=== PATIENT | male | born 1970 | race Caucasian/White ===

== ENCOUNTER 2017-09-22 16:18 | Emergency (ER) | payer OTHER ==
[~2017-09-22 16:18] MED LIST: HYDROmorphONE/DILAUDID 2 MG TAB PO SCH; ONDANSETRON DISINTEGRATING 4 MG TAB PO SCH
--- NOTE | 2017-09-22 16:24 | EDPHY ---
H & P Stated Complaint: ruq abd pain/nausea/vomited x1 radiates into back Time Seen by Provider: 09/22/17 16:24 HPI/ROS: HPI: This is a 47-year-old male who presents with Chief Complaint: ruq abd pain/nausea/vomited x1 radiates into back Location: Right upper quadrant Quality: Pain Duration: 1-2 days Signs and Symptoms: no fever, + nausea, + vomiting, no hematemesis, no blood in stool, no abdominal bloating, no diarrhea, no back pain, no urinary symptoms, no testicular/groin pain, no indigestion, no chest pain, no shortness of breath Timing: Sudden, waxes and wane Severity: Moderate to severe Context: Patient reports that he has a history of GERD in for the last 1-2 days he has been experiencing right upper quadrant radiating to his back constant pain that worsened after eating a salad for lunch within 1 hour. He became extremely nauseous and vomited up his salad. Patient reports that he tries to avoid fatty or fried foods or large meals. He denies any fever/chest pain/shortness of breath/diarrhea. Patient reports that he has daily bowel movements. Patient reports that he does drink alcohol but not for the last several days and not excessively. works here at [employer] [facility] [employer]. Modifying Factors: None Comment: ROS: see HPI Constitutional: No fever, no chills, no weight loss Eyes: No blurred vision Respiratory: No shortness of breath, no cough Cardiovascular: No chest pain, no palpitations Gastrointestinal: + nausea, + vomiting, no diarrhea, no hematemesis, no blood in stool Genitourinary: No dysuria, no blood in urine Extremities: No myalgias, no edema Neurologic: No weakness, no numbness Skin: No rashes, no petechiae Hematologic: No bruising, no bleeding MEDICAL/SURGICAL/SOCIAL HISTORY: Medical history: GERD. Surgical history: Denies Social history: CONSTITUTIONAL: Obese adult white male, who appears uncomfortable, awake and alert, no obvious distress HEENT: Atraumatic and normocephalic, PERRL, EOMI. Tympanic membranes clear. Oropharynx clear, no exudate and moist pink mucosa. Airway patent. No lymphadenopathy. No meningismus. Cardiovascular: Normal S1/S2, regular rate, regular rhythm, without murmur rub or gallop. PULMONARY/CHEST: Symmetrical and nontender. Clear to auscultation bilaterally. Good air movement. No accessory muscle usage. ABDOMEN: Soft, nondistended, right upper quadrant tenderness, epigastric tenderness, no rebound, + guarding, no peritoneal signs, no masses or organomegaly. No CVAT. Protuberant abdomen. Bowel sounds hypoactive throughout. EXTREMITIES: 2/2 pulses, strength 5/5, no deformities, no clubbing, no cyanosis or edema. NEUROLOGICAL: no focal neuro deficits. GCS 15. SKIN: Warm and dry, no erythema. no rash. Good capillary refill. Source: Patient Exam Limitations: No limitations - Personal History Current Tetanus/Diphtheria Vaccine: Yes Current Tetanus Diphtheria and Acellular Pertussis (TDAP): Yes - Medical/Surgical History Hx Asthma: No Hx Chronic Respiratory Disease: No Hx Diabetes: No Hx Cardiac Disease: No Hx Renal Disease: No Hx Cirrhosis: No Hx Alcoholism: No Hx HIV/AIDS: No Hx Splenectomy or Spleen Trauma: No Other PMH: gerd - Social History Smoking Status: Former smoker Constitutional: Initial Vital Signs Temperature (C) 36.7 C 09/22/17 16:20 Heart Rate 83 09/22/17 16:20 Respiratory Rate 19 09/22/17 16:20 Blood Pressure 130/85 H 09/22/17 16:20 O2 Sat (%) 93 09/22/17 16:20 O2 Delivery Mode Room Air O2 (L/minute) 2 Allergies/Adverse Reactions: No Known Allergies Allergy (Verified 09/22/17 16:18) Home Medications: Medication Instructions Recorded Atorvastatin Calcium 11/26/16 PRILOSEC 11/26/16 HYDROmorphone HCL [Dilaudid 2 mg 2 mg PO Q6 PRN #12 tab 09/22/17 (*)] Ondansetron Odt [Zofran Odt 4 mg 4 mg PO Q4 PRN #12 tab 09/22/17 (*)] Medical Decision Making - Diagnostics Imaging Results: Imaging Impressions Abdomen Ultrasound 09/22/17 16:32 Impression: 1. Cholelithiasis with multiple gallstones lodged in the gallbladder neck region. 2. No definite gallbladder wall thickening or pericholecystic fluid. 3. No biliary ductal dilation. 4. Hepatomegaly and hepatic steatosis. Findings and recommendations discussed with Emergency Department physician, Dr. Cely Gtz at 1710 hour, 09/22/2017. Final report concurs with initial preliminary interpretation. ED Course/Re-evaluation: Labs, IV fluids, IV medications, right upper quadrant ultrasound ordered Will evaluate for gallbladder disease Called by radiologist who reports that there are multiple stones within the gallbladder and neck but no signs of cholangitis/cholecystitis/ choledocholithiasis. With normal common bile duct measurement. Labs reviewed and show mild leukocytosis but no elevated LFTs or signs of acute kidney injury/electrolyte imbalance/dehydration 1740: Reassessed; patient states that his pain is not resolved; IV Dilaudid and IV promethazine given 1930: Reassessed patient who states that pain is completely resolved. Drinking edgar shilpa without any pain or difficulty. Patient reports that Percocet makes him nauseous. Requesting Dilaudid as his pain medication. Differential Diagnosis: Abdominal pain including but not limited to appendicitis, cholecystitis, gastritis and urinary tract infection. - Data Points Laboratory Results: Laboratory Results 09/22/17 16:45 09/22/17 16:45 09/22/17 09/22/17 16:45 16:45 WBC 11.45 10^3/uL H 10^3/uL (3.80-9.50) RBC 5.74 10^6/uL 10^6/uL (4.40-6.38) Hgb 14.5 g/dL g/dL (13.7-17.5) Hct 44.4 % % (40.0-51.0) MCV 77.4 fL L fL (81.5-99.8) MCH 25.3 pg L pg (27.9-34.1) MCHC 32.7 g/dL g/dL (32.4-36.7) RDW 15.3 % H % (11.5-15.2) Plt Count 281 10^3/uL 10^3/uL (150-400) MPV 11.5 fL fL (8.7-11.7) Neut % (Auto) 65.0 % % (39.3-74.2) Lymph % (Auto) 21.7 % % (15.0-45.0) [place] % (Auto) 8.7 % % (4.5-13.0) Eos % (Auto) 3.1 % % (0.6-7.6) Baso % (Auto) 0.9 % % (0.3-1.7) Nucleat RBC Rel Count 0.0 % % (0.0-0.2) Absolute Neuts (auto) 7.45 10^3/uL H 10^3/uL (1.70-6.50) Absolute Lymphs (auto) 2.48 10^3/uL 10^3/uL (1.00-3.00) Absolute Monos (auto) 1.00 10^3/uL H 10^3/uL (0.30-0.80) Absolute Eos (auto) 0.35 10^3/uL 10^3/uL (0.03-0.40) Absolute Basos (auto) 0.10 10^3/uL 10^3/uL (0.02-0.10) Absolute Nucleated RBC 0.00 10^3/uL 10^3/uL (0-0.01) Immature Gran % 0.6 % % (0.0-1.1) Immature Gran # 0.07 10^3/uL 10^3/uL (0.00-0.10) Sodium 142 mEq/L mEq/L (134-144) Potassium 4.6 mEq/L mEq/L (3.5-5.2) Chloride 104 mEq/L mEq/L (97-110) Carbon Dioxide 26 mEq/l mEq/l (22-31) Anion Gap 12 mEq/L mEq/L (8-16) BUN 17 mg/dL mg/dL (7-23) Creatinine 0.9 mg/dL mg/dL (0.7-1.3) Estimated GFR > 60 Glucose 105 mg/dL H mg/dL (70-100) Calcium 9.3 mg/dL mg/dL (8.5-10.4) Total Bilirubin 0.7 mg/dL mg/dL (0.1-1.4) Conjugated Bilirubin 0.3 mg/dL mg/dL (0.0-0.5) Unconjugated Bilirubin 0.4 mg/dL mg/dL (0.0-1.1) AST 31 IU/L IU/L (17-59) ALT 49 IU/L IU/L (21-72) Alkaline Phosphatase 108 IU/L IU/L (38-126) Total Protein 7.3 g/dL g/dL (6.3-8.2) Albumin 4.0 g/dL g/dL (3.5-5.0) Lipase 183 IU/L IU/L (23-300) Medications Given: Hydromorphone HCl (Dilaudid) 1 mg IVP Q2HRS PRN PRN Reason: Pain, Severe Unable to Take PO Last Admin: 09/22/17 17:52 Dose: 1 mg Discontinued Medications Sodium Chloride (Ns) 1,000 mls @ 0 mls/hr IV EDNOW ONE; Wide Open PRN Reason: Protocol Stop: 09/22/17 16:33 Last Admin: 09/22/17 16:40 Dose: 1,000 mls Morphine Sulfate (Morphine) 6 mg IVP EDNOW ONE Stop: 09/22/17 16:33 Last Admin: 09/22/17 16:40 Dose: 6 mg Ondansetron HCl (Zofran) 4 mg IVP EDNOW ONE Stop: 09/22/17 16:33 Last Admin: 09/22/17 16:40 Dose: 4 mg Promethazine HCl (Phenergan) 25 mg IVP EDNOW ONE Stop: 09/22/17 17:43 Last Admin: 09/22/17 17:50 Dose: 25 mg Departure - Departure Disposition: Home, Routine, Self-Care Clinical Impression: Biliary colic Cholelithiasis Qualifiers: Cholelithiasis location: gallbladder Cholecystitis presence: without cholecystitis Biliary obstruction: without biliary obstruction Qualified Code(s) : K80.20 - Calculus of gallbladder without cholecystitis without obstruction Condition: Good Instructions: Biliary Colic (ED), Gallstones (ED), Low Fat Diet (ED) Additional Instructions: Please advance diet slowly; start with clear liquids, then bland and finally low -fat diet and eat small meals. Take pain medications and antiemetics as needed. Please follow-up with General surgery in 3-5 days for re-evaluation and to determine if candidate for outpatient laparoscopic cholecystectomy. Referrals: Atilio Santiago MD [Medical Doctor] - 5-7 days, call for appt. Prescriptions: HYDROmorphone HCL [Dilaudid 2 mg (*)] 2 mg PO Q6 PRN #12 tab PRN Reason: Pain, Severe Ondansetron Odt [Zofran Odt 4 mg (*)] 4 mg PO Q4 PRN #12 tab PRN Reason: Nausea/Vomiting, Use 1st
[2017-09-22] MEDS ORDERED: ONDANSETRON 4 MG/2 ML VIAL IVP ONE (16:32)
[2017-09-22] MEDS ORDERED: NS 1,000 ML IV ONE (16:32)
[2017-09-22 16:50] LABS: PLATELET COUNT 281 10^3/uL (150-400)
[2017-09-22] MEDS ORDERED: PROMETHAZINE HCL 25 MG/ML INJ IVP ONE (17:42)
[2017-09-22] MEDS ORDERED: HYDROmorphONE/DILAUDID 1 MG/ML INJ IVP PRN (17:42)
[2017-09-22 18:04] VITALS: RESP 18
--- NOTE | 2017-09-22 19:41 | CPEKG ---
Heart Rate: 88 RR Interval: 682 P-R Interval: 236 QRSD Interval: 100 QT Interval: 364 QTC Interval: 441 P [place]: 31 QRS [place]: 24 T Wave [place]: 10 EKG Severity - ABNORMAL ECG - EKG Impression: SINUS RHYTHM EKG Impression: FIRST DEGREE AV BLOCK Electronically Signed By: Ronda Rendon 22-Sep-2017 20:52:46
--- NOTE | 2017-09-22 19:41 | CPEKG ---
Heart Rate: 88 RR Interval: 682 P-R Interval: 236 QRSD Interval: 100 QT Interval: 364 QTC Interval: 441 P [place]: 31 QRS [place]: 24 T Wave [place]: 10 EKG Severity - ABNORMAL ECG - EKG Impression: SINUS RHYTHM EKG Impression: FIRST DEGREE AV BLOCK Electronically Signed By: Ronda Rendon 22-Sep-2017 20:52:46
[2017-09-22 19:54] VITALS: BP 151/105; PULSE 95; TEMP 97.9; O2SAT 94
== END 2017-09-22 19:53 | disposition home or self-care (01) ==
DX: K80.70 Calculus of gallbladder and bile duct without cholecystitis without obstruction (principal); E86.9 Volume depletion, unspecified; Z87.891 Personal history of nicotine dependence
CPT/HCPCS: 96374; J1170; J2405; J2550

== ENCOUNTER 2017-09-23 09:32 | Observation (INO) | payer OTHER ==
[2017-09-23] MEDS ORDERED: NS 1,000 ML IV ONE (10:40)
[2017-09-23] MEDS ORDERED: HYDROmorphONE/DILAUDID 1 MG/ML INJ IVP ONE ×2 (10:40→12:03)
[2017-09-23] MEDS ORDERED: ONDANSETRON 4 MG/2 ML VIAL IVP ONE (10:40)
[2017-09-23] MEDS ORDERED: DICYCLOMINE 10 MG CAP PO ONE (10:46)
[2017-09-23] MEDS ORDERED: cefOXitin SODIUM 2 GM in D5W 100 ML IV ONE (10:47)
--- NOTE | 2017-09-23 10:56 | EDPHY ---
H & P Time Seen by Provider: 09/23/17 10:27 HPI/ROS: CHIEF COMPLAINT: Abdominal pain, vomiting HISTORY OF PRESENT ILLNESS: 47-year-old male presents to the emergency department with ongoing right upper quadrant abdominal pain and vomiting. The patient was seen in the emergency department late last evening and was diagnosed with cholelithiasis. He was discharged home with oral Dilaudid. He states when he got home he was feeling a bit better but then ate some chicken noodle soup and has essentially been and abdominal pain and vomiting since that time. He complains of severe pain in his epigastric and right upper quadrant. He has vomited "all night long ". He had a normal bowel movement earlier this morning. No blood in his stool. No fevers or chills. No reported trauma. No chest pain or difficulty breathing. No back pain. No headache. REVIEW OF SYSTEMS: Constitutional: No fever, no chills. Eyes: No double or blurry vision. ENT: No sore throat. Respiratory: No cough, no shortness of breath. Cardiac: No chest pain. Gastrointestinal: Abdominal pain and vomiting as above. No diarrhea. Genitourinary: No dysuria. Musculoskeletal: No neck or back pain. Skin: No rashes. Neurological: No headache. Past Medical/Surgical History: GERD, dyslipidemia, cholelithiasis Social History: Smoking Status: Former smoker Physical Exam: General Appearance: Alert, moderate distress. 171/105, afebrile. Eyes: Pupils equal and round. Extraocular motions are all intact. ENT: Mouth: Mucous membranes dry. Respiratory: No wheezing, rhonchi, or rales, lungs are clear to auscultation. Cardiovascular: Regular rate and rhythm. Gastrointestinal: Abdomen is obese and soft. He has tenderness with palpation in the right upper quadrant and in his epigastric area. There is no rebound, guarding or masses noted. Neurological: Alert and oriented x 3, cranial nerves II through XII grossly intact Skin: Warm and dry, no rashes. Musculoskeletal: Nontender to palpate along the cervical, thoracic or lumbar spine. Neck is supple. Extremities: Full range of motion and no peripheral edema. Psychiatric: Patient is oriented X 3, there is no agitation. Constitutional: Initial Vital Signs Temperature (C) 36.5 C 09/23/17 09:40 Heart Rate 72 09/23/17 09:40 Respiratory Rate 18 11/07/17 09:40 Blood Pressure 171/105 H 09/23/17 09:40 O2 Sat (%) 98 09/23/17 09:40 O2 Delivery Mode Room Air Allergies/Adverse Reactions: No Known Allergies Allergy (Verified 09/23/17 09:40) Home Medications: Medication Instructions Recorded Atorvastatin Calcium [Lipitor 20 20 mg PO DAILY 11/26/16 mg (*)] Omeprazole [Prilosec 20 mg] 40 mg PO DAILY 11/26/16 HYDROmorphone HCL [Dilaudid 2 mg 2 mg PO Q6 PRN #12 tab 09/22/17 (*)] Ondansetron Odt [Zofran Odt 4 mg 4 mg PO Q4 PRN #12 tab 09/22/17 (*)] Medical Decision Making ED Course/Re-evaluation: The patient's ultrasound from last evening was reviewed the patient has multiple gallstones with stone stuck in the neck of the gallbladder. The patient was kept NPO. He had an IV established and was given IV Dilaudid and IV Zofran as well as IV normal saline. Elevated transaminases today compared to normal transaminases yesterday. I spoke with the on-call surgeon, Dr. Anderson, who came to evaluate the patient. Patient was kept NPO. He asked that the patient received 2 g of cefoxitin, 20 mg of Bentyl p. o. and had the patient lie on his right side. Patient scheduled go to the operating room at 3:30 a.m. this afternoon. Patient was kept NPO and was given IV Dilaudid for pain control. Differential Diagnosis: Including but not limited to cholecystitis, cholelithiasis, choledocholithiasis , pancreatitis, GERD, peptic ulcer disease - Data Points Laboratory Results: Laboratory Results 09/23/17 10:55 09/23/17 10:55 09/23/17 09/23/17 10:55 10:55 WBC 13.67 10^3/uL H 10^3/uL (3.80-9.50) RBC 6.34 10^6/uL 10^6/uL (4.40-6.38) Hgb 16.1 g/dL g/dL (13.7-17.5) Hct 48.0 % % (40.0-51.0) MCV 75.7 fL L fL (81.5-99.8) MCH 25.4 pg L pg (27.9-34.1) MCHC 33.5 g/dL g/dL (32.4-36.7) RDW 15.7 % H % (11.5-15.2) Plt Count 302 10^3/uL 10^3/uL (150-400) MPV 11.0 fL fL (8.7-11.7) Neut % (Auto) 88.2 % H % (39.3-74.2) Lymph % (Auto) 6.4 % L % (15.0-45.0) [place] % (Auto) 4.2 % L % (4.5-13.0) Eos % (Auto) 0.1 % L % (0.6-7.6) Baso % (Auto) 0.3 % % (0.3-1.7) Nucleat RBC Rel Count 0.0 % % (0.0-0.2) Absolute Neuts (auto) 12.07 10^3/uL H 10^3/uL (1.70-6.50) Absolute Lymphs (auto) 0.87 10^3/uL L 10^3/uL (1.00-3.00) Absolute Monos (auto) 0.57 10^3/uL 10^3/uL (0.30-0.80) Absolute Eos (auto) 0.01 10^3/uL L 10^3/uL (0.03-0.40) Absolute Basos (auto) 0.04 10^3/uL 10^3/uL (0.02-0.10) Absolute Nucleated RBC 0.00 10^3/uL 10^3/uL (0-0.01) Immature Gran % 0.8 % % (0.0-1.1) Immature Gran # 0.11 10^3/uL H 10^3/uL (0.00-0.10) Sodium 143 mEq/L mEq/L (134-144) Potassium 3.9 mEq/L mEq/L (3.5-5.2) Chloride 100 mEq/L mEq/L (97-110) Carbon Dioxide 23 mEq/l mEq/l (22-31) Anion Gap 20 mEq/L H mEq/L (8-16) BUN 11 mg/dL mg/dL (7-23) Creatinine 0.7 mg/dL mg/dL (0.7-1.3) Estimated GFR > 60 Glucose 162 mg/dL H mg/dL (70-100) Calcium 10.1 mg/dL mg/dL (8.5-10.4) Total Bilirubin 0.9 mg/dL mg/dL (0.1-1.4) AST 64 IU/L H IU/L (17-59) ALT 127 IU/L H IU/L (21-72) Alkaline Phosphatase 177 IU/L H IU/L (38-126) Total Protein 7.7 g/dL g/dL (6.3-8.2) Albumin 4.7 g/dL g/dL (3.5-5.0) Lipase 156 IU/L IU/L (23-300) Medications Given: Acetaminophen (Tylenol) 1,000 mg PO Q8 CHRISTINE Stop: 03/22/18 13:59 Last Admin: 09/23/17 14:11 Dose: 1,000 mg Hydromorphone/Sodium Chloride (Hydromorphone) 0.2 - 0.4 mg IVP Q4 PRN PRN Reason: SEVERE PAIN, UNABLE TO TAKE PO Stop: 10/03/17 12:51 Last Admin: 09/23/17 14:10 Dose: 0.4 mg Ketorolac Tromethamine (Toradol) 30 mg IVP Q6HRS CHRISTINE Stop: 09/28/17 14:14 Last Admin: 09/23/17 14:22 Dose: 30 mg Ondansetron HCl (Zofran) 4 mg IVP Q4HRS PRN PRN Reason: Nausea/Vomiting, Use 1st Stop: 09/24/17 12:41 Last Admin: 09/23/17 14:12 Dose: 4 mg Discontinued Medications Dicyclomine HCl (Bentyl) 20 mg PO EDNOW ONE Stop: 09/23/17 10:47 Last Admin: 09/23/17 11:00 Dose: 20 mg Hydromorphone HCl (Dilaudid) 0.5 mg IVP EDNOW ONE Stop: 09/23/17 10:41 Last Admin: 09/23/17 11:00 Dose: 0.5 mg Hydromorphone HCl (Dilaudid) 1 mg IVP EDNOW ONE Stop: 09/23/17 12:04 Last Admin: 09/23/17 12:06 Dose: 1 mg Sodium Chloride (Ns) 1,000 mls @ 0 mls/hr IV EDNOW ONE; Wide Open PRN Reason: Protocol Stop: 09/23/17 10:41 Last Admin: 09/23/17 11:00 Dose: 1,000 mls Cefoxitin Sodium 2 gm/ (Dextrose) 100 mls @ 200 mls/hr IV EDNOW ONE PRN Reason: Protocol Stop: 09/23/17 11:16 Last Admin: 09/23/17 11:51 Dose: 100 mls Lactated Ringer's (Lr) 1,000 mls @ 0 mls/hr IV ONCE ONE PRN Reason: Per Protocol Stop: 09/23/17 15:20 Last Admin: 09/23/17 15:30 Dose: 1,000 mls Ondansetron HCl (Zofran) 4 mg IVP EDNOW ONE Stop: 09/23/17 10:41 Last Admin: 09/23/17 11:00 Dose: 4 mg Departure - Departure Disposition: [facility] Inpatient Acute Clinical Impression: Acute cholecystitis Abdominal pain Qualifiers: Abdominal location: right upper quadrant Qualified Code(s): R10.11 - Right upper quadrant pain Cholelithiasis Qualifiers: Cholelithiasis location: gallbladder Cholecystitis presence: with cholecystitis Cholecystitis acuity: acute Biliary obstruction: without biliary obstruction Qualified Code(s): K80.00 - Calculus of gallbladder with acute cholecystitis without obstruction Condition: Good
[2017-09-23 11:05] LABS: PLATELET COUNT 302 10^3/uL (150-400)
[2017-09-23] MEDS ORDERED: ONDANSETRON 4 MG/2 ML VIAL IVP PRN (12:42)
[2017-09-23] MEDS ORDERED: HYDROmorphONE/DILAUDID 1 MG/ML INJ IVP PRN (12:42)
[2017-09-23] MEDS ORDERED: NS 1,000 ML IV SCH (12:45)
[2017-09-23] MEDS ORDERED: HYDROmorphone HCL/NS/PF 0.4 MG/2 ML SYR IVP PRN ×3 (12:52→21:03)
--- NOTE | 2017-09-23 13:44 | GHP ---
[f rep st] PREOP HISTORY AND PHYSICAL DATE OF ADMISSION: 09/23/2017 ADMITTING DIAGNOSIS: Acute and chronic cholecystitis with cholelithiasis. HISTORY: The patient is a 47-year-old white male who has had 2 years of intermittent epigastric discomfort described as a "tummy ache." Friday night after a movie, he had the onset of a "tummy ache." He found he could not sleep overnight and in the morning was not hungry for breakfast. He did eat lunch and promptly vomited. He came to the ER later in the evening. After being diagnosed as having gallstones and sent home for an elective outpatient cholecystectomy, he had chicken noodle soup. That caused recurrence of the pain. He could not sleep last night. The pain was described again as colicky and he couldn't find a comfortable position. He had no further vomiting. He did come to the hospital this morning. He was seen in the ER. His bilirubin and lipase were normal. His transaminases had increased slightly, and his white count had increased as well. I was asked to come see him for evaluation. SOCIAL HISTORY: He smoked from ages [age] continuously, took a short break, restarted smoking, stopped at age 41. On the average, he smoked 1 pack per day. He does drink 2-3 vodka drinks per week. ALLERGIES: He has no known drug allergies. MEDICATIONS: His only medications include atorvastatin 40 mg at bedtime, Prilosec 40 mg q.a.m. PAST SURGICAL HISTORY: His surgeries have been limited to a vasectomy. PAST MEDICAL HISTORY: There is no history of rheumatic fever, tuberculosis, hepatitis, or transfusions. REVIEW OF SYSTEMS: He wears contacts for visual correction. He has 1 dental crown. Review of systems otherwise quite negative. There are no limits on his activities. No history of steroid use. FAMILY HISTORY: His mother at age 78. She had metastatic lung cancer to her bones. His father is 83 years old and alive and well. The patient is preceded in by 3 sisters, 59, 56, and 49. All 3 sisters are healthy. There are no bleeding disorders, clotting disorders, difficulty with anesthesia in the patient or the family. PHYSICAL EXAMINATION: GENERAL: He is awake and alert, lying on his back, complaining of pain. After taking 20 mg of Bentyl and lying on his side, as well as the narcotics being given intravenously, he is feeling much better. HEAD: His skull is normocephalic and atraumatic. NECK: His neck is nontender. There is no carotid bruit. Thyroid is not enlarged. No cervical, supraclavicular, axillary or inguinal lymphadenopathy. LUNGS: Clear to auscultation. BACK: His back is otherwise unremarkable. CARDIAC: Shows S1, S2 to be normal with no split of S2. ABDOMEN: He has a positive Cameron sign. Other than that, his abdomen has hypoactive bowel sounds. To palpation, left upper quadrant is 2, left mid abdomen is 3, left lower quadrant is 1, epigastrium is 5, periumbilical area is 3, suprapubic area is 1, right upper quadrant is 8-9. Right midabdomen is 5, right lower quadrant is 1. LABORATORY DATA: White count of 13.6, MCV is 57.7, MCH is 25.4, platelet count 302. His anion gap is 20. Glucose is 162. AST is 64. ALT is 127. Alkaline phosphatase is 177, with a total bilirubin of 0.9 and lipase of 156. IMPRESSION: I believe this patient has acute and chronic cholecystitis with cholelithiasis as well. There is no evidence of common duct involvement at this time, though I have cautioned the patient that we cannot totally rule it out based on exam and laboratory at this time. PLAN: To perform laparoscopic cholecystectomy today. He and his understand the planned procedure and wish to proceed as outlined. /[id number]/MODL MTDD
[2017-09-23] MEDS: ACETAMINOPHEN 500 MG TAB PO SCH ×2 (14:11→21:07)
[2017-09-23] MEDS: KETOROLAC 15 MG/1 ML SDV IVP SCH ×3 (14:22→23:31)
[2017-09-23] MEDS ORDERED: LR 1,000 ML IV ONE (15:19)
[2017-09-23] MEDS ORDERED: MIDAZOLAM 2 MG/2 ML VIAL IVP ONE (15:41)
--- NOTE | 2017-09-23 15:43 | PDANEPAE ---
ANE Past Medical History - Cardiovascular History Hx Hypertension: No Hx Arrhythmias: No Hx Chest Pain: No Hx Coronary Artery / Peripheral Vascular Disease: No Hx CHF / Valvular Disease: No Hx Palpitations: Yes - Pulmonary History Hx COPD: No Hx Asthma/Reactive Airway Disease: No Hx Recent Upper Respiratory Infection: No Hx Oxygen in Use at Home: No Hx Sleep Apnea: No Sleep Apnea Screening Result - Last Documented: Positive - Neurologic History Hx Cerebrovascular Accident: No Hx Seizures: No Hx Dementia: No - Endocrine History Hx Diabetes: No Hypothyroid: No Hyperthyroid: No Obesity: moderate - Renal History Hx Renal Disorders: No - Liver History Hx Hepatic Disorders: No - Neurological & Psychiatric Hx Hx Neurological and Psychiatric Disorders: No - Cancer History Hx Cancer: No - Congenital Disorder History Hx Congenital Disorders: No - GI History GERD: mild Hx Gastrointestinal Disorders: Yes Gastrointestinal History Comment: GERD - Other Health History Other Health History: NONE - Surgical History Prior Surgeries: NONE ANE Review of Systems Review of Systems: ANE Patient History - Allergies Allergies/Adverse Reactions: No Known Allergies Allergy (Verified 09/23/17 09:40) - Home Medications Home Medications: Atorvastatin Calcium [Lipitor 20 mg (*)] 20 mg PO DAILY 11/26/16 [Last Taken 05/03] Omeprazole [Prilosec 20 mg] 40 mg PO DAILY 11/26/16 [Last Taken 09/22/17] - NPO status NPO Since - Liquids (Date): 09/22/17 NPO Since - Liquids (Time): 21:00 NPO Since - Solids (Date): 09/22/17 NPO Since - Solids (Time): 21:00 - Anes Hx Hx Anesthesia Complications (with details): no prior h/o anesthesia - Smoking Hx Smoking Status: Former smoker - Alcohol Use Alcohol Use: Occasionally - Family Anes Hx Family Anes Hx: neg - N/A Family Hx Anesthesia Complications: NONE ANE Labs/Vital Signs - Labs Result Diagrams: 09/23/17 10:55 09/23/17 10:55 - Vital Signs Blood Pressure: 141/91 Heart Rate: 93 Respiratory Rate: 15 O2 Sat (%): 91 Height: 180.34 cm Weight: 120.202 kg ANE Physical Exam - Airway Neck exam: FROM Mallampati Score: Class 2 Mouth exam: normal dental/mouth exam - Pulmonary Pulmonary: no respiratory distress, no rales or rhonchi, clear to auscultation - Cardiovascular Cardiovascular: regular rate and rhythym, no murmur, rub, or gallop - ASA Status ASA Status: II ANE Anesthesia Plan Anesthesia Plan: general endotracheal anesthesia Total IV Anesthesia: No
[2017-09-23] MEDS ORDERED: MIDAZOLAM 2 MG/2 ML VIAL ONE (15:45)
[2017-09-23] MEDS ORDERED: fentaNYL 100 MCG/2 ML INJ ONE ×3 (15:54→19:06)
[2017-09-23] MEDS ORDERED: PROPOFOL 200 MG/20 ML VIAL ONE (15:54)
[2017-09-23] MEDS ORDERED: PROPOFOL/EMULSION 500 MG/50 ML BOTTLE IV ONE ×2 (15:54→17:02)
[2017-09-23] MEDS ORDERED: REMIFENTANIL HCL 1 MG VIAL ONE ×2 (15:54→17:02)
[2017-09-23] MEDS ORDERED: DEXAMETHASONE 4 MG/ML VIAL ONE (15:54)
[2017-09-23] MEDS ORDERED: LIDOCAINE 2% 5 ML SDV ONE (16:00)
[2017-09-23] MEDS ORDERED: ROCURONIUM 50 MG/5 ML VIAL ONE (16:01)
[2017-09-23] MEDS ORDERED: PHENYLEPHRINE HCL 100 MCG/ML SYR ONE (16:16)
[2017-09-23] MEDS ORDERED: HEPARIN 5,000 UNIT/0.5 ML SYR ONE (16:23)
[2017-09-23] MEDS ORDERED: ceFAZolin 1 GM VIAL ONE (16:24)
[2017-09-23] MEDS ORDERED: OXYCODONE/APAP 5/325 TAB PO PRN (16:34)
[2017-09-23] MEDS ORDERED: ACETAMINOPHEN 500 MG TAB PO PRN (16:34)
[2017-09-23] MEDS ORDERED: PROMETHAZINE HCL 25 MG/ML INJ IVP PRN (16:34)
[2017-09-23] MEDS ORDERED: NALOXONE HCL 0.4 MG/ML INJ IVP PRN ×2 (16:34→16:36)
[2017-09-23] MEDS ORDERED: LR 500 ML IV PRN (16:34)
[2017-09-23] MEDS ORDERED: HYDROCODONE/APAP 5/325 TAB PO PRN (16:36)
[2017-09-23] MEDS ORDERED: KETOROLAC 30 MG/1 ML SDV ONE (17:21)
--- NOTE | 2017-09-23 17:57 | POSTOPPROG ---
Post Op Note Date of Operation: 09/23/17 Surgeon: Bboo Anderson Anesthesia: GET(General Endotracheal) Pre-op Diagnosis: acute and chronic cholecystitis with cholelithiasis Post-op Diagnosis: acute and chronic cholecystitis with cholelithiasis with umbilical hernia Indication: acute and chronic cholecystitis with cholelithiasis Procedure: laparoscopic cholecystectomy with repair of umbilical hernia Findings: acute and chronic cholecystitis with cholelithiasis with umbilical hernia Inf/Abcess present in the surg proc area at time of surgery?: No EBL: Minimal Total fluids administered: 1200 Complications: none Specimen(s): Gallbladder, gallbladder culture
[2017-09-23] MEDS ORDERED: LABETALOL HCL 50 MG/10 ML SYR IVP PRN (18:00)
--- NOTE | 2017-09-23 18:05 | POSTANESTH ---
Post Anesthetic Evaluation Cardiovascular Status: Similar to Pre-Op Cond, Tx Hyper/Hypo-tension Respiratory Status: Normal, Stable Level of Consciousness/Mental Status: Can Participate in Eval Pain Control: Adequate, Prn Tx Ordered Nausea/Vomiting Control: Adequate, Prn Tx Ordered Complications Possibly Related to Anesthesia: None Noted
[2017-09-23] MEDS ORDERED: HYDROmorphONE/DILAUDID 1 MG/ML INJ ONE (18:08)
[2017-09-23] MEDS: HYDROmorphONE/DILAUDID 1 MG/ML INJ IVP PRN ×2 (18:13→21:08)
[2017-09-23] MEDS ORDERED: LABETALOL HCL 5 MG/ML 20 ML MDV ONE (18:16)
[2017-09-23] MEDS: LABETALOL HCL 5 MG/ML 20 ML MDV IVP PRN ×3 (18:22→19:13)
[2017-09-23] MEDS: fentaNYL 100 MCG/2 ML INJ IVP PRN ×3 (18:29→19:10)
--- NOTE | 2017-09-23 19:15 | GOP ---
[f rep st] OPERATIVE REPORT DATE OF OPERATION: 09/23/2017 SURGEON: Bobo Anderson MD ANESTHESIA: General endotracheal. PREOPERATIVE DIAGNOSIS: Acute and chronic cholecystitis with cholelithiasis. POSTOPERATIVE DIAGNOSIS: Acute and chronic cholecystitis and cholelithiasis with umbilical hernia. PROCEDURE PERFORMED: FINDINGS: Acute and chronic cholecystitis and cholelithiasis with umbilical hernia and hydrops of th e gallbladder. SPECIMENS: Gallbladder and gallbladder culture. ESTIMATED BLOOD LOSS: Minimal. INDICATIONS: Acute and chronic cholecystitis with cholelithiasis. DESCRIPTION OF PROCEDURE: The patient was placed on the operating table in supine position. After i nduction of adequate general endotracheal anesthesia, the abdomen was carefully prepped and draped. A surgical time-out was carried out and agreed to by all members of the operative team. A curvilinear incision was planned in the infraumbilical region. The skin was incised and a large fa tty umbilical hernia was identified. This was carefully cleared circumferentially down to the fascia l level. It was released from the fascia with cautery. The fat was elevated and cross-clamped with a Liliana clamp. The specimen was transected distal to the clamp and a suture ligature of 2-0 Vicryl w as used. A small amount of bleeding which was controlled with cautery. A pursestring of #0 PDS was placed in the fascial level. The peritoneum was entered. A, 11/12 mm disposable Tati trocar was positioned. Intraabdominal insufflation was carried out to 15 mmHg. At this point he was placed in a 25-degree r everse Trendelenburg position. An orogastric tube was passed and he was rotated 5 degrees to the lef t. A 5 mm epigastric port was placed through a transverse incision. Two right upper quadrant 5 mm ports were also placed. The gallbladder was tensely distended. It was drained of approximately 150 cc of a slightly tinged white bile. The gallbladder was grasped at the apex to make sure there would be n o leakage from this site. A 2nd clamp was placed on the infundibulum. Careful dissection was pa d out with a right-angle forceps and Bovie cautery at 20. The cystic duct was carefully identified a nd cleared circumferentially. It was clipped triply on the gallbladder side, singly on the patient's side, and divided. The cystic artery was identified. It was cleared circumferentially and clipped doubly on the patient's side, singly on the gallbladder side, and divided. A hook cautery was then u sed to carefully dissect the gallbladder away from the biliary fossa. Irrigation with heparin and An cef containing irrigant was carried out. After the gallbladder had been completely removed, it was placed in an EndoCatch bag and delivered vi a the umbilical site. Because of the stones, it could not be easily delivered. The EndoCatch bag lozada d to be opened outside the patient and a ring forceps was used to deliver the gallbladder and stones in a piecemeal manner, and finally able to pull the EndoCatch bag out completely. Pneumoperitoneum w as re-established. Irrigation with heparin and Ancef containing irrigant was carried out. The biliary fossa was quite h emostatic. Ports were removed under direct vision. Orogastric tube was removed. A simple dtme-fy-nare suture o f #0 PDS was placed in the midpoint of the umbilical hernia. The pursestring was then tied and the s joseph-to-side stitches tied. This resulted in excellent closure. Subcutaneous tissue was checked. Th ere was no evidence of bleeding. It was irrigated. All skin incision were closed with inverted simp le sutures of #4-0 Vicryl. Mastisol and Steri-Strips were placed. Band-Aids were positioned. The p atient was transferred to Recovery in stable and satisfactory condition. INFECTION: No. TOTAL FLUIDS: 1200 cc intraop. DRAINS: None. /[id number]/MODL
[2017-09-23] MEDS: ATORVASTATIN CALCIUM 20 MG TAB PO SCH (23:31)
[2017-09-24 05:18] LABS: PLATELET COUNT 238 10^3/uL (150-400)
[2017-09-24] MEDS: ACETAMINOPHEN 500 MG TAB PO SCH (05:56)
[2017-09-24] MEDS: KETOROLAC 15 MG/1 ML SDV IVP SCH (05:56)
[2017-09-24 07:56] VITALS: BP 137/78; PULSE 68; RESP 16; TEMP 98.2; O2SAT 93
[2017-09-24] MEDS: ATORVASTATIN CALCIUM 20 MG TAB PO SCH (08:35)
[2017-09-24] MEDS ORDERED: PANTOPRAZOLE SODIUM 40 MG TAB PO SCH (09:00)
[2017-09-24] MEDS ORDERED: ATORVASTATIN CALCIUM 20 MG TAB PO SCH (09:00)
--- NOTE | 2017-09-24 09:18 | SOAPPROG ---
SOAP Progress Note Assessment/Plan: POD#1 09/24/17 09:15 Assessment: Doing well Plan: Discharge Subjective: " I feel great. I'm passing gas and I'm hungry" Objective: Vital Signs Temp Pulse Resp BP Pulse Ox 36.8 C 68 16 137/78 H 93 09/24/17 07:53 09/24/17 07:53 09/24/17 07:53 09/24/17 07:53 09/24/17 07:53 Microbiology 09/23/17 16:51 Gram Stain - Final Gallbladder - Other Laboratory Results 09/24/17 04:59 09/24/17 04:59 09/23/17 09/24/17 09/25/17 05:59 05:59 05:59 Intake Total 2953 Output Total 465 Balance 2488 - Time Spent With Patient Time Spent With Patient: 15 - Pending Discharge Pending Discharge Within 24 Hours: Yes Pending Discharge Date: 09/25/17 Pending Discharge Time: 11:00 Physical Exam - Physical Exam General Appearance: WD/WN, alert, no apparent distress Neck: non-tender, full range of motion, supple Respiratory: chest non-tender, lungs clear, normal breath sounds Cardiac/Chest: regular rate, rhythm Abdomen: normal bowel sounds, non-tender, soft Male Genitalia: deferred Rectal: deferred Back: Normal inspection Skin: normal color, warm/dry Neuro/Psych: alert, normal mood/affect, oriented x 3 ICD10 Worksheet Patient Problems: Problems Problem Status Onset Abdominal pain Acute Acute cholecystitis Acute Cholelithiasis Acute
--- NOTE | 2017-09-24 09:53 | GDS ---
[f rep st] DISCHARGE SUMMARY DISCHARGE DIAGNOSES: 1. Acute and chronic cholecystitis with cholelithiasis. 2. Umbilical hernia. PROCEDURE PERFORMED: Laparoscopic cholecystectomy and repair of umbilical hernia. CONDITION AT DISCHARGE: Improved. DISPOSITION: Home. MEDICATIONS: He is to continue his home medications of Prilosec and atorvastatin. He will use Tylen ol 1000 mg every 8 hours and Toradol 10 mg every 6 hours routinely and use Dilaudid 2 mg every 6 as n eeded for severe pain. The latter prescription he already has at home and is not reissued at this ti ny. ACTIVITY: He is to, for the next 3 weeks, shower only, keep the Steri-Strips in place, lift less paul n 10 pounds. Take a multivitamin with zinc, copper and C daily and watch his fat intake as too much fat could caus e diarrhea. He is to watch for signs of infections that would be superficial as manifested by rednes s, warmth, swelling and tenderness and deep as manifested by general fatigue, abdominal pain, loss of appetite, fevers and chills. He will return to see Dr. Atilio Santiago in 10 days to 2 weeks. HOSPITAL COURSE: He was brought into the hospital, underwent a laparoscopic surgery yesterday. He h as done well overnight, is taking clear liquids and his diet is going to be advanced this morning. I f he does well, he will be discharged at noon today. /[id number]/MODL
--- NOTE | 2017-09-24 11:54 | ASMTCMCOM ---
CM Note CM Note Notes: Pt to DC today with no DC needs. Date Signed: 09/24/2017 11:54 AM Electronically Signed By:Pam Salas LCSW
--- NOTE | 2017-09-24 11:54 | ASMTCMCOM ---
CM Note CM Note Notes: Pt to DC today with no DC needs. Date Signed: 09/24/2017 11:54 AM Electronically Signed By:Pam Salas LCSW
--- NOTE | 2017-09-24 11:54 | ASMTCMCOM ---
CM Note CM Note Notes: Pt to DC today with no DC needs. Date Signed: 09/24/2017 11:54 AM Electronically Signed By:Pam Salas LCSW
--- NOTE | 2017-09-24 14:56 | ASDISCHSUM ---
Discharge Information Plan Status: Medically Cleared to Leave: Discharge Date:09/24/2017 12:45 PM CM D/C Disposition: ADT D/C Disposition:Home, Routine, Self-Care Projected Discharge Date:09/24/2017 12:45 PM Transportation at D/C: Discharge Delay Reason: Follow-Up Date:09/24/2017 12:45 PM Discharge Slot: Final Diagnosis: Placement Information Patient Contact Information Contact Name:DIONTE Relationship: Address:[address] [place] Work Phone: City:[facility] Phone: State/[employer] Code:[place] [address] Email: Financial Information Financial Class:[employer] Primary Plan Desc:[facility] Primary Plan Number:[id number] Secondary Plan Desc: Secondary Plan Number: Assessment Information LACE LACE Length of stay for Answers: Less than 1 day current admission Acuity / Level of Care Answers: Was the patient admitted to hospital via the emergency department? Yes: Emergency dept visits in Answers: 1 last 6 months Score: 4 Date Signed: 09/24/2017 09:30 AM Electronically Signed By:Pam Salas LCSW [facility] Progress Note CM Note CM Note Notes: Pt to DC today with no DC needs. Date Signed: 09/24/2017 11:54 AM Electronically Signed By:Pam Salas LCSW Intervention Information
--- NOTE | 2017-09-24 14:56 | ASDISCHSUM ---
Discharge Information Plan Status: Medically Cleared to Leave: Discharge Date:09/24/2017 12:45 PM CM D/C Disposition: ADT D/C Disposition:Home, Routine, Self-Care Projected Discharge Date:09/24/2017 12:45 PM Transportation at D/C: Discharge Delay Reason: Follow-Up Date:09/24/2017 12:45 PM Discharge Slot: Final Diagnosis: Placement Information Patient Contact Information Contact Name:DIONTE Relationship: Address:[address] [place] Work Phone: City:[place] [facility] Phone: State/[employer] Code:[place] [address] Email: Financial Information Financial Class:[employer] Primary Plan Desc:[facility] Primary Plan Number:[id number] Secondary Plan Desc: Secondary Plan Number: Assessment Information LACE LACE Length of stay for Answers: Less than 1 day current admission Acuity / Level of Care Answers: Was the patient admitted to hospital via the emergency department? Yes: Emergency dept visits in Answers: 1 last 6 months Score: 4 Date Signed: 09/24/2017 09:30 AM Electronically Signed By:Pam Salas LCSW [facility] Progress Note CM Note CM Note Notes: Pt to DC today with no DC needs. Date Signed: 09/24/2017 11:54 AM Electronically Signed By:Pam Salas LCSW Intervention Information
--- NOTE | 2017-09-24 14:56 | ASDISCHSUM ---
Discharge Information Plan Status: Medically Cleared to Leave: Discharge Date:09/24/2017 12:45 PM CM D/C Disposition: ADT D/C Disposition:Home, Routine, Self-Care Projected Discharge Date:09/24/2017 12:45 PM Transportation at D/C: Discharge Delay Reason: Follow-Up Date:09/24/2017 12:45 PM Discharge Slot: Final Diagnosis: Placement Information Patient Contact Information Contact Name:DIONTE Relationship: Address:[address] [place] Work Phone: City:[place] [facility] Phone: State/[employer] Code:[place] [address] Email: Financial Information Financial Class:[employer] Primary Plan Desc:[facility] Primary Plan Number:[id number] Secondary Plan Desc: Secondary Plan Number: Assessment Information LACE LACE Length of stay for Answers: Less than 1 day current admission Acuity / Level of Care Answers: Was the patient admitted to hospital via the emergency department? Yes: Emergency dept visits in Answers: 1 last 6 months Score: 4 Date Signed: 09/24/2017 09:30 AM Electronically Signed By:Pam Salas LCSW [facility] Progress Note CM Note CM Note Notes: Pt to DC today with no DC needs. Date Signed: 09/24/2017 11:54 AM Electronically Signed By:Pam Salas LCSW Intervention Information
== END 2017-09-24 12:45 | disposition home or self-care (01) ==
LOC: F1N 12:52
PROVIDERS: ADMIT Surgery; ATTEND Surgery
DX: K81.2 Acute cholecystitis with chronic cholecystitis (principal); K42.9 Umbilical hernia without obstruction or gangrene; E78.5 Hyperlipidemia, unspecified; K21.9 Gastro-esophageal reflux disease without esophagitis; Z87.891 Personal history of nicotine dependence
CPT/HCPCS: 47562; 96361; 96365; 96375; 96376; 99285; G0378; J0690; J0694; J1100; J1170; J1885; J2250; J2370; J2405; J2704; J3010; J3490